=== PATIENT | male | born 1975 | race Caucasian/White ===

== ENCOUNTER 2025-06-12 06:16 | Day surgery (SDC) | payer BC, SELFPAY | END 2025-06-12 15:21 | disposition home or self-care (01) | LOC: GI 06:16 | PROVIDERS: ATTENDING PHYSICIAN Internal Medicine Gastroenterology | DX: Z12.11 Encounter for screening for malignant neoplasm of colon (principal); K64.8 Other hemorrhoids; K63.5 Polyp of colon | CPT/HCPCS: 45385; 88305 ==

== ENCOUNTER 2025-06-26 18:52 | Emergency (ER) | payer BC, SELFPAY ==
[2025-06-26 19:02] VITALS: BP 200/112
[2025-06-26 19:29] LABS: Hematocrit 42.9 % (39.0-52.0); Hemoglobin 14.7 g/dL (13.0-18.0); Mean Corp Hgb Conc. 34.3 g/dL (33.0-37.0); Mean Corpuscular Volume 90.1 fL (80.0-94.0); Nucleated Red Blood Cells % 0 % (-); Platelet Count 292 10^3/uL (130-400); Red Cell Dist. Width 12.3 % (11.5-14.5)
[2025-06-26 19:58] LABS: ALT (SGPT) 37 U/L (0-50); AST (SGOT) 32 U/L (17-59); Albumin 4.6 g/dl (3.5-5.0); Alkaline Phosphatase 87 U/L (38-126); Blood Urea Nitrogen 13 mg/dl (9-20); Calcium 9.6 mg/dl (8.4-10.2); Carbon Dioxide 28 mmol/L (22-30); Chloride 101 mmol/L (98-107); Glucose 95 mg/dl (70-99); Potassium 4.2 mmol/L (3.5-5.1); Sodium 138 mmol/L (135-145); Total Protein 7.5 g/dl (6.3-8.2); eGFR > 60.00
[2025-06-26 20:00] VITALS: BP 169/96
[2025-06-26 20:03] VITALS: BMI 24.4
[2025-06-26 20:11] LABS: Troponin I 0.013 ng/ml
[2025-06-26 21:00] VITALS: BP 142/92
[2025-06-26 22:00] VITALS: BP 133/88
[2025-06-26 22:41] LABS: D-Dimer 0.34 ug/mlFEU (0.00-0.50)
[2025-06-26 22:52] LABS: COVID-19 Antigen Negative (Negative)
[2025-06-26 23:00] VITALS: BP 149/77
[2025-06-26 23:04] LABS: Troponin I < 0.012 ng/ml
[2025-06-26] MEDS: PEPCID 20 MG IV (23:26)
--- NOTE | 2025-06-27 00:42 | ED.GENMED ---
History of Present Illness
General
Chief Complaint: Chest Pain
Source: patient
Exam Limitations: none
Time Seen by Provider: 06/26/25 20:58
Nursing documentation reviewed up to this point in time: agreed with
History of Present Illness
History of Present Illness:
Patient is a 50-year-old male with no significant past medical history who presents to the emergency department with upper chest discomfort. He states that around 5 PM yesterday evening he noticed a uncomfortable sensation in his upper chest. He
describes it as a 'sore throat in his chest'. He denies a tightness or pressure in sensation. He denies a sharp pain. He denies any radiation into his back, jaw, shoulders. He states symptoms have been intermittent and seem worse when he is
standing or with deep inspiration. He denies any clear exertional component.
He denies any associated fever, productive cough, shortness of breath. No pain, swelling, or numbness/tingling extremities. No severe back pain.
He initially thought symptoms were either seasonal allergies or acid reflux. He was seen in an urgent care who referred him to the emergency department to rule out cardiac etiology.
Patient states his mom is currently undergoing treatment for metastatic breast cancer and is significantly immunocompromise. He is worried that he may have a virus and does not want to transfer anything to his mom. He has not had any known sick
contacts.
Review of Systems
Review of Systems
Allergies reviewed?: Yes
All Other Systems: ROS reviewed and negative except as documented in HPI and ROS
Phy Exam
Physical Exam
Physical Exam:
Vitals: Hypertensive on arrival, improved by my assessment.
General: Patient is well appearing, no acute distress. Nontoxic appearing
Skin: Warm and dry, no rashes or lesions
Head: Normocephalic, atraumatic
Eyes: Sclera nonicteric. EOMs intact. No nystagmus.
Throat: No pharyngeal erythema. No tonsillar edema or exudates. Uvula midline. Protecting airway
Neck: Normal ROM, no cervical spine tenderness, no meningismus
Cardiac: Regular rate and rhythm, no murmurs. No reproducible chest wall tenderness. 2+ palpable radial pulses bilaterally
Pulm: Normal respiratory effort, no wheezes, rales, rhonchi heard on exam
Abdomen: No abdominal tenderness.
Extremities: No evidence of cyanosis or edema
Neuro: AAOx3. Grossly intact.
Psychiatric: Normal affect.
Scores
Heart Score for Chest Pain Patients
STEMI patient?: Not applicable
Course
Orders/Labs/Results
Orders:
Orders
06/26/25 18:53
ECG [Electrocardiogram (*1)] Urgent
Reason for Study: Chest Pain
Cardiology Consult: Unknown
06/26/25 18:54
EKG- Treatment ONCE
06/26/25 18:57
Cardiac Monitoring- Treatment ONCE
IV Insert/Care/Rem.- Treatment PRN
CR Chest - 2 Views Urgent
Comment:
Reason For Exam: respiratory distress
O2 Therapy [RESP] Urgent
Titrate/Wean O2 to maintain O2 sat greater than (%): 93
Special Instructions: TO MAINTAIN CONTINUOUS O2 SATS >/= 93%
Pulse Ox/cont/shift [RESP] Urgent
Quantity: 1
Special Instructions: continuous pulse ox
06/26/25 19:11
Complete Blood Count/With Diff Urgent
Comprehensive Metabolic Panel Urgent
NT-proBNP Urgent
Troponin I Urgent
06/26/25 22:15
Electrocardiogram (*1) Urgent
Reason for Study: Chest Pain
EKG- Treatment ONCE
06/26/25 22:16
COVID-19 Antigen Urgent
Source: Nasal Swab
D-Dimer Urgent
Troponin I Urgent
Influenza A+B Rapid Molecular Urgent
[facility] Source: Nasal Swab
Specimen Description:
06/26/25 23:15
Famotidine [Pepcid] 20 mg IV NOW STA
06/26/25 23:24
Throat Culture, Comprehensive Urgent
[facility] Source: Throat/Pharynx
Specimen Description:
Date Specimen was Collected: 06/26/25
Time Specimen was Collected: 23:21
06/26/25 23:25
Rapid Strep Group A Urgent
[facility] Source: Throat/Pharynx
Specimen Description:
Date Specimen was Collected: 06/26/25
Time Specimen was Collected: 23:21
06/26/25 19:11
06/26/25 19:11
Vital Signs
Initial and Last Documented VS:
Initial Vital Signs
Temp Pulse Resp BP Pulse Ox
98.3 F 87 20 200/112 98
06/26/25 19:02 06/26/25 19:02 06/26/25 19:02 06/26/25 19:02 06/26/25 19:02
Last Documented Vital Signs
Temp Pulse Resp BP Pulse Ox
98.3 F 60 22 149/77 96
06/26/25 19:02 06/26/25 23:30 06/26/25 23:30 06/26/25 23:00 06/27/25 00:48
MDM/Problems Addressed
Differential Diagnosis Includes:
Not limited to: Viral illness, pharyngitis, hayfever, GERD, pericarditis, myocarditis, pulmonary embolism, acute coronary syndrome, etc.
MDM/Problems Addressed:
50-year-old male presents with intermittent upper chest discomfort since last night, described as worse with inspiration and certain positions. No fevers, exertional component, or other viral symptoms.
On arrival, vitals are within normal limits. Patient is well-appearing and in no acute distress. Cardiopulmonary examination is unremarkable. Distal pulses are palpable and equal bilaterally.
Symptoms are very atypical, less likely anginal or ischemic. Given the nature of the complaint, a comprehensive workup was performed. Basic labs within normal limits. Two sets of troponins were undetectable. D-dimer was negative. Chest X-ray showed
no acute cardiopulmonary process. Viral studies were negative.
Overall presentation not consistent with ACS, PE, pneumonia, or other acute cardiopulmonary pathology. Differential includes mild viral or allergic process, musculoskeletal pain, or possible GERD.
Given negative workup and stable condition, patient is appropriate for discharge home with close outpatient follow-up. Return precautions discussed, including worsening chest pain, shortness of breath, syncope, or new symptoms. Patient verbalized
understanding and agreement with plan.
Chronic conditions affecting care:
N/A
Acute Exacerbation and/or Progression of Chronic Illness:
N/A
*Radiology
Radiology exam reviewed: radiology read reviewed
*Pulse Oximetry
SaO2: 96
Oxygen Mode of Delivery: Room air
Patient hypoxic: no
*EKG
Interpreted by ED Provider?: Yes
EKG Intrepretation Date: 06/26/25
Interpretation: normal
Comparison EKG: no comparison EKG present
Heart Rate: 69
Rate: normal
Rhythm: sinus
[place]: normal axis
Interval: normal QT interval
QRS Pattern: normal QRS
Ischemia: no ischemia
*Arch[employer]ural [employer] Interpretation
Rate: normal
Interpretation: normal
Heart Rate: 68
Rhythm: sinus
*Critical Care Note
Total Time (30-74mins, 75-104mins- exclusive of procedures): Not Applicable
ED Attending Note
-
Portions of this chart may have been created with voice recognition software.� Occasional wrong word or��sound alike� substitutions may have occurred due to the inherent limitations of voice recognition software.
Discharge Plan
Departure
Patient Disposition: Home (Routine Discharge)
Date of Disposition: 06/26/25
Time of Disposition: 23:36
Patient with high blood pressure during this ER visit?: Yes
Condition: Good
Discharge Problem:
Atypical chest pain
Instructions: Chest pain (DC), BLOOD PRESSURE
Referrals:
Riley Vanegas PA-C [Family Provider, [facility]]
Ramon Soto MD [Active, Cardiology]
Activity Restrictions/Additional Instructions:
RETURN TO THE EMERGENCY DEPARTMENT WITH ANY FEVER, CHEST PAIN/SHORTNESS OF BREATH, SEVERE BACK PAIN, DIZZINESS/LIGHTHEADEDNESS, DIFFICULTY BREATHING, WORSENING IN CURRENT SYMPTOMS, OR ANY OTHER CONCERNS
- As discussed your lab work showed no acute abnormalities today in the emergency department. Your cardiac enzymes were negative. Your chest x-ray showed no acute findings. Your viral studies including COVID and flu were negative
- Please continue to stay well-hydrated. You can try OTC Pepcid for the next 1-2 weeks. You should use Flonase inhaler and OTC antihistamines for symptom management.
- Follow-up with primary care for further evaluation/management to ensure your symptoms are improving
Monitor your symptoms closely and return to the emergency department with any acute worsening/new symptoms or any other concerns
Interventions
Interventions:
*Risk Screen - Suicide Last Done: 06/26/25 19:02
*General Assessment Last Done: 06/26/25 19:02
*Neglect/Abuse Screening Last Done: 06/26/25 19:02
*ED- Fall Risk Assessment Last Done: 06/26/25 19:02
*ED COVID-19 Vaccine History Last Done: 06/26/25 19:02
*ED Influenza Vaccine History Last Done: 06/26/25 19:02
*Nursing Disposition Last Done: 06/26/25 23:49
ED- Cardiac Assessment Last Done: 06/26/25 20:04
Discharge Date and Time
Discharge Date/Time: 06/26/25 23:52
Print Language: POLISH
== END 2025-06-26 23:52 | disposition home or self-care (01) ==
LOC: EMR 18:52
PROVIDERS: Emergency Medicine; Physician Assistant; EMERGENCY PHYSICIAN Emergency Medicine; FAMILY PHYSICIAN Physician Assistant Medical
DX: R07.89 Other chest pain (principal); Z80.3 Family history of malignant neoplasm of breast
CPT/HCPCS: 99283; 71046; 80053; 83880; 84484; 85025; 85379; 87070; 87502; 87811; 87880; 93005

== ENCOUNTER → 2025-06-29 14:28 | Outpatient (REF) | payer BC, SELFPAY | LOC: RAD 14:28 | PROVIDERS: ATTENDING PHYSICIAN Physician Assistant Medical | DX: R07.89 Other chest pain (principal); R07.1 Chest pain on breathing | CPT/HCPCS: 71260; Q9967 ==

== ENCOUNTER → 2025-08-12 10:05 | Outpatient (REF) | payer BC, SELFPAY | LOC: PAVMRI 10:05 | PROVIDERS: ATTENDING PHYSICIAN Physician Assistant Medical | DX: I77.6 Arteritis, unspecified (principal) | CPT/HCPCS: 71555 ==